=== PATIENT | male | born 1955 | race Caucasian/White ===

== ENCOUNTER 2016-09-20 20:07 | Observation (INO) | payer BC ==
[2016-09-20 20:55] LABS: BASO # 0.1 K/uL (0.0-0.2); BASO % 0.6 % (0.0-2.0); EOS # 0.1 K/uL (0.0-0.7); EOS % 1.1 % (0.0-4.0); HEMOGLOBIN 14.1 g/dL (12.0-18.0); LYMPH # 2.5 K/uL (1.0-4.3); LYMPH % 26.1 % (20.0-40.0); MEAN CORPUSCULAR HEMOGLOBIN 31.1 pg (27.0-31.0); MEAN CORPUSCULAR HGB CONC 34.2 g/dL (33.0-37.0); MEAN PLATELET VOLUME 8.4 fl (7.2-11.7); MONO # 0.8 K/uL (0.0-0.8); MONO % 8.5 % (0.0-10.0); NEUT # 6.1 K/uL (1.8-7.0); NEUT % 63.7 % (50.0-75.0); RBC 4.54 Mil/uL (4.40-5.90); WHITE BLOOD COUNT 9.6 K/uL (4.8-10.8)
[2016-09-20 21:18] LABS: ALB/GLOB RATIO 1.5 (1.0-2.1); ALBUMIN 4.3 g/dL (3.5-5.0); ALT/SGPT 63 U/L (21-72); AST/SGOT 41 U/L (17-59); BLOOD UREA NITROGEN 16 mg/dl (9-20); GFR AFRICAN-AMERICAN > 60; GFR NON-AFRICAN AMERICAN > 60
--- NOTE | 2016-09-20 21:23 | ED PDOC ---
HPI: Chest Pain Time Seen by Provider: 09/20/16 20:39 Chief Complaint (Nursing): Chest Pain Chief Complaint (Provider): Chest Pain History Per: Patient History/Exam Limitations: no limitations Onset/Duration Of Symptoms: Days (x1) Current Symptoms Are (Timing): Still Present Additional Complaint(s): Luciano Pascal is a 61 year old male with previous medical history of diabetes , hypercholesterolemia, and hypertension who presents to the emergency department with a complaint of intermittent left-sided chest pain described as "pinching" ongoing since this morning. Denied fever, chills, cough, abdominal pain and shortness of breath. 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 Nuñez, yesterday for similiar symptoms and has a pending stress test. PMD: Torito Mccray Past Medical History Reviewed: Historical Data, Nursing Documentation, Vital Signs Vital Signs: Last Vital Signs Temp 97.8 F 09/21/16 08:09 Pulse 59 L 09/21/16 08:09 Resp 18 09/21/16 08:09 BP 111/72 09/21/16 08:09 Pulse Ox 98 09/21/16 08:09 - Medical History PMH: Diabetes, HTN, Hypercholesterolemia - Surgical History Surgical History: No Surg Hx - Family History Family History: States: No Known Family Hx - Social History Current smoker - smoking cessation education provided: No Alcohol: Occasional Drugs: Denies - Home Medications Home Medications: Ambulatory Orders Medication Instructions Recorded Aspirin [Low Dose Aspirin EC] 81 mg PO DAILY 09/20/16 Lisinopril [Zestril] 10 mg PO DAILY 09/20/16 Metformin HCl [Glucophage] 500 mg PO DAILY 09/20/16 Multivitamin/Iron/Folic Acid 1 tab PO DAILY 09/20/16 [Centrum Adults Tablet] Simvastatin 10 mg PO DAILY 09/20/16 - Allergies Allergies/Adverse Reactions: Allergies Allergy/AdvReac Type Severity Reaction Status Date / Time No Known Allergies Allergy Verified 09/20/16 20:28 Review of Systems ROS Statement: Except As Marked, All Systems Reviewed And Found Negative Constitutional: Negative for: Fever, Chills Cardiovascular: Positive for: Chest Pain (left-sided; intermittent "pinches") Respiratory: Negative for: Cough, Shortness of Breath Gastrointestinal: Negative for: Abdominal Pain Physical Exam - Reviewed Nursing Documentation Reviewed: Yes Vital Signs Reviewed: Yes - Physical Exam Appears: Positive for: Well, Non-toxic, No Acute Distress Head Exam: Positive for: ATRAUMATIC, NORMAL INSPECTION, NORMOCEPHALIC Skin: Positive for: Normal Color Cardiovascular/Chest: Positive for: Regular Rate, Rhythm. Negative for: Chest Non Tender Respiratory: Positive for: Normal Breath Sounds. Negative for: Crackles, Rales , Rhonchi, Wheezing Gastrointestinal/Abdominal: Positive for: Normal Exam, Bowel Sounds, Soft. 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 Nuñez who agrees with plans to admit patient overnight for observation --Troponin II ordered for 02:50 Scribe Attestation: Documented by Doris Oscar, acting as a scribe for Raul Tinajero MD. Provider Scribe Attestation: All medical record entries made by the Scribe were at my direction and personally dictated by me. I have reviewed the chart and agree that the record accurately reflects my personal performance of the history, physical exam, medical decision making, and the department course for this patient. I have also personally directed, reviewed, and agree with the discharge instructions and disposition. Disposition - Clinical Impression Clinical Impression: Chest pain - Patient ED Disposition Is Patient to be Admitted: Yes - Disposition Disposition Time: 22:00 Condition: FAIR
[2016-09-21 08:09] VITALS: BP 111/72; PULSE 59; RESP 18; TEMP 97.8; O2SAT 98
--- NOTE | 2016-09-21 08:11 | CP.PCM.HP ---
History of Present Illness - History of Present Illness History of Present Illness: This 61-year-old man, a hypertensive and a diabetic with a history of dyslipidemia and a family history of vascular disease came to the emergency room after experiencing a pinching sensation in his chest while at office. That morning he had gone to the gym and exercises on a treadmill for 20 minutes without any difficulty. The patient recently underwent electron beam tomography and was found to have a coronary calcium score of 261. He has been extremely anxious about this. He has never experienced any effort related chest pain or myocardial infarction or symptoms of congestive cardiac failure. Approximately 6 years back the patient had undergone a coronary angiography which revealed no evidence of stenotic coronary arteries. On physical examination this is a middle aged man in his able to lie virtually flat and carry on a conversation. He has been chest pain-free since his admission. Telemetry shows a steady sinus rhythm at physiological heart rates. His heart rate was 64 bpm and regular. His blood pressure was 114/74 mmHg. His peripheral pulses were well felt. There were no carotid bruits. There was no pedal edema and his jugular venous pressure was not elevated. His extremities are warm, his nailbeds were pink. [place] was not palpable. First and second heart sounds were normal. There was no murmur or gallop. There were no rales. His abdomen was soft liver and spleen are not palpable. His electrocardiogram showed sinus rhythm with a normal EKG pattern. 2 sets of cardiac enzymes were negative for any evidence of myocardial injury. The rest of his labs were noted. Impression: Atypical chest pain with no evidence of acute coronary syndrome. Diabetes mellitus, hypertension and dyslipidemia. The patient is in the process of setting up a stress test. In the meantime he will be allowed to return home. He has been taking an aspirin every day. Present on Admission - Present on Admission Any Indicators Present on Admission: No Past Patient History - Past Medical History & Family History Past Medical History?: Yes - Past Social History Smoking Status: Never Smoked - CARDIAC Hx Hypercholesterolemia: Yes Hx Hypertension: Yes - PULMONARY Hx Respiratory Disorders: No - NEUROLOGICAL Hx Neurological Disorder: No - HEENT Hx HEENT Problems: No - RENAL Hx Chronic Kidney Disease: No - ENDOCRINE/METABOLIC Hx Endocrine Disorders: Yes Hx Diabetes Mellitus Type 2: Yes - HEMATOLOGICAL/ONCOLOGICAL Hx Blood Disorders: No Hx AIDS: No Hx Human Immunodeficiency Virus (HIV): No - INTEGUMENTARY Hx Dermatological Problems: No - MUSCULOSKELETAL/RHEUMATOLOGICAL Hx Falls: Yes - GASTROINTESTINAL Hx Gastrointestinal Disorders: No - GENITOURINARY/GYNECOLOGICAL Hx Genitourinary Disorders: No - PSYCHIATRIC Hx Psychophysiologic Disorder: No Hx Substance Use: No - SURGICAL HISTORY Hx Tonsillectomy: Yes Other/Comment: bilateral foot bunion sx - ANESTHESIA Hx Anesthesia: Yes Hx Anesthesia Reactions: No Meds Allergies/Adverse Reactions: Allergies Allergy/AdvReac Type Severity Reaction Status Date / Time No Known Allergies Allergy Verified 09/20/16 20:28 Results - Vital Signs Recent Vital Signs: Last Vital Signs Temp 97.5 F L 09/21/16 05:00 Pulse 55 L 09/21/16 05:00 Resp 19 09/21/16 05:00 BP 117/76 09/21/16 05:00 Pulse Ox 100 09/21/16 05:00 - Labs Result Diagrams: 09/20/16 20:51 09/20/16 20:51 Labs: Laboratory Results - last 24 hr 09/21/16 09/21/16 02:50 05:34 POC Glucose (mg/dL) 114 H Troponin I < 0.0120
--- NOTE | 2016-09-21 10:28 | RAD ---
HISTORY: Chest pain COMPARISON: No prior. FINDINGS: LUNGS: The lungs are well inflated and clear. PLEURA: No significant pleural effusion identified, no pneumothorax apparent. CARDIOVASCULAR: Normal. OSSEOUS STRUCTURES: No significant abnormalities. VISUALIZED UPPER ABDOMEN: Normal. OTHER FINDINGS: None. IMPRESSION: No active pulmonary disease.
== END 2016-09-21 09:45 | disposition home or self-care (01) ==
LOC: H.ER 20:07 → H.ERHOLD 21:54 → H.TEL 23:49
PROVIDERS: ADMIT Internal Medicine Cardiovascular Disease; ATTEND Internal Medicine Cardiovascular Disease
DX: R07.89 Other chest pain (principal); I10 Essential (primary) hypertension; E11.9 Type 2 diabetes mellitus without complications; E78.5 Hyperlipidemia, unspecified; E78.00 Pure hypercholesterolemia, unspecified; Z79.82 Long term (current) use of aspirin
CPT/HCPCS: 36415; 71010; 80053; 82948; 84484; 85025; 99282; G0378

== ENCOUNTER 2017-12-15 19:12 | Emergency (ER) | payer BC ==
[2017-12-15 19:13] VITALS: BMI 26.0
[2017-12-15 19:32] VITALS: RESP 16
[2017-12-15] MEDS ORDERED: DiphenhydrAMINE 50 mg/ml Inj IVP STA (19:38)
--- NOTE | 2017-12-15 19:49 | ED PDOC ---
HPI: Allergic Reaction Time Seen by Provider: 12/15/17 19:35 Chief Complaint (Nursing): Allergic Reaction History Per: Patient History/Exam Limitations: no limitations Onset/Duration Of Symptoms: Hrs Current Symptoms Are (Timing): Still Present Context: Travel Possible Cause: DEQUAN Inhibitor Additional Complaint(s): Hx of HTN (on lisonopril), HLD, DM presenting with lip swelling <1 hour prior to arrival, was at dinner eating seafood salad and steak and noticed his lips felt swollen. Denies difficulty breathing, swallowing, rash, or any other symptoms. PMD: Dr. Mccray Past Medical History Reviewed: Historical Data, Nursing Documentation, Vital Signs Vital Signs: Last Vital Signs Temp 97.3 F L 12/15/17 19:29 Pulse 91 H 12/15/17 19:29 Resp 16 12/15/17 19:29 BP 156/85 H 12/15/17 19:29 Pulse Ox 96 12/15/17 19:29 - Medical History PMH: Diabetes, HTN, Hypercholesterolemia Denies: HIV, Chronic Kidney Disease - Surgical History Surgical History: Tonsillectomy - Family History Family History: States: Unknown Family Hx - Home Medications Home Medications: Ambulatory Orders Medication Instructions Recorded Aspirin [Low Dose Aspirin EC] 81 mg PO DAILY 09/20/16 Lisinopril [Zestril] 10 mg PO DAILY 09/20/16 Metformin HCl [Glucophage] 500 mg PO DAILY 09/20/16 Multivitamin/Iron/Folic Acid 1 tab PO DAILY 09/20/16 [Centrum Adults Tablet] Simvastatin 10 mg PO DAILY 09/20/16 - Allergies Allergies/Adverse Reactions: Allergies Allergy/AdvReac Type Severity Reaction Status Date / Time No Known Allergies Allergy Verified 12/15/17 19:28 Review of Systems ROS Statement: Except As Marked, All Systems Reviewed And Found Negative ENT: Positive for: Mouth Swelling (Lip swelling). Negative for: Throat Pain, Throat Swelling Physical Exam - Reviewed Nursing Documentation Reviewed: Yes Vital Signs Reviewed: Yes - Physical Exam Appears: Positive for: Well, Non-toxic, No Acute Distress Head Exam: Positive for: ATRAUMATIC, NORMAL INSPECTION, NORMOCEPHALIC Skin: Positive for: Normal Color, Warm, DRY Eye Exam: Positive for: EOMI, Normal appearance, PERRL ENT: Positive for: Pharynx Is (normal soft tissue interiorly, no uvula swell ing), Other (R sided lip and facial swelling, speaking normally, no muffled voice) Neck: Positive for: Normal, Painless ROM Cardiovascular/Chest: Positive for: Regular Rate, Rhythm Respiratory: Positive for: CNT, Normal Breath Sounds Gastrointestinal/Abdominal: Positive for: Normal Exam, Soft Back: Positive for: Normal Inspection Extremity: Positive for: Normal ROM Neurologic/Psych: Positive for: Alert, Oriented - ECG O2 Sat by Pulse Oximetry: 96 Pulse Ox Interpretation: Normal - Progress ED Course And Treament: 730PM Patient on ACEi presenting with lip swelling --Well appearing, speaking full sentences, not hypoxic --Likely ACEi induced angioedema --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 Mccray Monday --Advised to return to ED if any worsening swelling, difficulty breathing, or any other concerning symptoms Disposition - Clinical Impression Clinical Impression: Angio-edema - Disposition Referrals: Torito Mccray MD [Medical Doctor] - Disposition: Routine/Home Disposition Time: 23:30 Condition: STABLE Instructions: Angioedema Forms: [employer] (Ivorian)
[2017-12-15 23:36] VITALS: BP 115/69; PULSE 74; TEMP 98.1; O2SAT 97
== END 2017-12-15 23:36 | disposition home or self-care (01) ==
LOC: H.ER 19:12
DX: T78.3XXA Angioneurotic edema, initial encounter (principal); E11.9 Type 2 diabetes mellitus without complications; E78.00 Pure hypercholesterolemia, unspecified; I10 Essential (primary) hypertension; Z79.82 Long term (current) use of aspirin
CPT/HCPCS: 96374; 96375; 99283; J1200; J2930